=== PATIENT | male | born 1965 | race African-American/Black ===

== ENCOUNTER 2017-01-20 10:28 | Inpatient (IN) | payer OTHER ==
[2017-01-20 10:47] VITALS: BMI 25.0
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
[2017-01-20] MEDS ORDERED: ACETAMINOPHEN 325 MG TABLET (FP) PO PRN (14:02)
[2017-01-20] MEDS ORDERED: MAGNESIUM CITRATE 300 ML BOTTLE PO PRN (14:02)
[2017-01-20] MEDS ORDERED: MAGNESIUM HYDROX 2400MG/30ML ORAL SUSPENSION 30 ML CUP PO PRN (14:02)
[2017-01-20] MEDS ORDERED: MAG HYDROX/AL HYDROX/SIMETH 30 ML UNIT-DOSE CUP PO PRN (14:02)
[2017-01-20] MEDS ORDERED: MENTHOL/PHENOL 1 EACH UD MM PRN (14:02)
[2017-01-20] MEDS ORDERED: chlordiazePOXIDE HCL 25 MG CAPSULE PO PRN (14:02)
[2017-01-20] MEDS ORDERED: IBUPROFEN 400 MG TABLET (FP) PO PRN (14:02)
[2017-01-20] MEDS ORDERED: P-EPHED 60MG/TRIPROLIDI 2.5MG TABLET PO PRN (14:02)
[2017-01-20] MEDS ORDERED: NICOTINE POLACRILEX 4 MG GUM BUC PRN (14:02)
[2017-01-20] MEDS ORDERED: guaiFENesin/D-METHORPHAN HB 10 ML UNIT-DOSE CUPS PO PRN (14:02)
[2017-01-20] MEDS ORDERED: hydrOXYzine PAMOATE 50 MG CAPSULE (FP) PO PRN (14:02)
[2017-01-20] MEDS ORDERED: LOPERAMIDE HCL 2 MG CAPSULE PO PRN (14:02)
[2017-01-20] MEDS ORDERED: chlordiazePOXIDE HCL 25 MG CAPSULE PO ONE (14:15)
[2017-01-20] MEDS ORDERED: METHADONE HCL 10 MG TABLET (FOR DETOX USE ONLY) PO ONE ×2 (14:15→23:00)
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
[2017-01-20] MEDS: chlordiazePOXIDE HCL 25 MG CAPSULE PO SCH ×2 (17:24→22:09)
[2017-01-20] MEDS: THIAMINE HCL 100 MG TABLET (FP) PO SCH (22:08)
[2017-01-20 23:13] LABS: URINE APPEARANCE CLEAR; URINE BILIRUBIN NEGATIVE (NEGATIVE); URINE COLOR LTYELLOW; URINE GLUCOSE (UA) 1+ (NEGATIVE); URINE KETONE NEGATIVE (NEGATIVE); URINE LEUK ESTERASE NEGATIVE (NEGATIVE); URINE NITRITE NEGATIVE (NEGATIVE); URINE PROTEIN NEGATIVE (NEGATIVE); URINE UROBILINOGEN NEGATIVE E.U./dl (0.2-1.0)
[2017-01-20 23:23] LABS: URINE BLOOD 1+ (NEGATIVE)
[2017-01-20 23:26] LABS: URINE RBC 3 /hpf (0-3); URINE WBC 1 /hpf (3-5)
[2017-01-21] MEDS: chlordiazePOXIDE HCL 25 MG CAPSULE PO SCH ×4 (05:58→22:56)
[2017-01-21] MEDS ORDERED: METHADONE HCL 10 MG TABLET (FOR DETOX USE ONLY) PO SCH (10:00)
[2017-01-21 10:07] LABS: HIV 1 & 2 AB NEGATIVE; HIV 1 AGp24 NEGATIVE
[2017-01-21] MEDS: PRENATAL VITAMINS W/ FOLIC ACID TABLET (FP) PO SCH (10:24)
[2017-01-21] MEDS: NICOTINE 21 MG/24 HOURS TOPICAL PATCH TD SCH (10:25)
[2017-01-21 10:57] LABS: MCH 30.7 pg (25.7-33.7); MCHC 32.3 g/dl (32.0-35.9); MEAN CELL VOLUME 95.1 fl (80-96); MEAN PLT VOLUME 8.5 fl (7.5-11.1); PLATELET COUNT 215 K/MM3 (134-434); RDW 14.3 % (11.9-15.9); WHITE BLOOD COUNT 5.6 K/mm3 (4.0-10.0)
[2017-01-21 11:09] LABS: ANION GAP 8 (8-16); CALCIUM 8.9 mg/dL (8.5-10.1); CO2 26 mmol/L (21-32); GLUCOSE,RANDOM 147 mg/dL (74-106)
[2017-01-21 11:12] LABS: ALK PHOS 63 U/L (45-117); BILIRUBIN,TOTAL 0.6 mg/dL (0.2-1.0); COCKROFT - GAULT 80.38; CREATININE 1.2 mg/dL (0.7-1.3); SGOT/AST 16 U/L (15-37); SGPT/ALT 12 U/L (12-78); TOT PROT 6.9 g/dl (6.4-8.2)
--- NOTE | 2017-01-21 11:20 | PN ---
S CIWA - CIWA Score Nausea/Vomitin Muscle Tremors: 3 Anxiety: 3 Agitation: 2 Paroxysmal Sweats: 1-Minimal Palms Moist Orientation: 0-Oriented Tacttile Disturbances: 1-Very Mild Itch/Numbness Auditory Disturbances: 1-Very Mild Visual Disturbances: 1-Very Mild Sensitivity Headache: 2-Mild CIWA-Ar Total Score: 17 [facility] Progress Note (SOAP) Subjective: ALERT,IRRITABLE,ANXIOUS,INTERRUPTED SLEEP,TREMOR Objective: 01/21/17 11:18 Vital Signs Temperature 97.9 F 01/21/17 11:09 Pulse Rate 76 01/21/17 11:09 Respiratory Rate 20 01/21/17 11:09 Blood Pressure 150/95 01/21/17 11:09 O2 Sat by Pulse Oximetry (%) EKG NSR, Laboratory Last Values WBC 5.6 K/mm3 (4.0-10.0) 01/21/17 06:05 RBC 4.49 M/mm3 (4.00-5.60) 01/21/17 06:05 Hgb 13.8 GM/dL (11.7-16.9) 01/21/17 06:05 Hct 42.8 % (35.4-49) 01/21/17 06:05 MCV 95.1 fl (80-96) 01/21/17 06:05 MCHC 32.3 g/dl (32.0-35.9) 01/21/17 06:05 RDW 14.3 % (11.9-15.9) 01/21/17 06:05 Plt Count 215 K/MM3 (134-434) 01/21/17 06:05 MPV 8.5 fl (7.5-11.1) 01/21/17 06:05 Sodium 141 mmol/L (136-145) 01/21/17 06:05 Potassium 4.5 mmol/L (3.5-5.1) 01/21/17 06:05 Chloride 107 mmol/L (98-107) 01/21/17 06:05 Carbon Dioxide 26 mmol/L (21-32) 01/21/17 06:05 Anion Gap 8 (8-16) 01/21/17 06:05 BUN 15 mg/dL (7-18) 01/21/17 06:05 Creatinine 1.2 mg/dL (0.7-1.3) 01/21/17 06:05 Creat Clearance w eGFR > 60 (>60) 01/21/17 06:05 Random Glucose 147 mg/dL (74-106) H 01/21/17 06:05 Calcium 8.9 mg/dL (8.5-10.1) 01/21/17 06:05 Total Bilirubin 0.6 mg/dL (0.2-1.0) 01/21/17 06:05 AST 16 U/L (15-37) 01/21/17 06:05 ALT 12 U/L (12-78) 01/21/17 06:05 Alkaline Phosphatase 63 U/L (45-117) 01/21/17 06:05 Total Protein 6.9 g/dl (6.4-8.2) 01/21/17 06:05 Albumin 4.0 g/dl (3.4-5.0) 01/21/17 06:05 Urine Color Ltyellow 01/20/17 14:00 Urine Appearance Clear 01/20/17 14:00 Urine pH 6.0 (5.0-8.0) 01/20/17 14:00 Ur Specific [place] 1.017 (1.001-1.035) 01/20/17 14:00 Urine Protein Negative (NEGATIVE) 01/20/17 14:00 Urine Glucose (UA) 1+ (NEGATIVE) H 01/20/17 14:00 Urine Ketones Negative (NEGATIVE) 01/20/17 14:00 Urine Blood 1+ (NEGATIVE) H 01/20/17 14:00 Urine Nitrite Negative (NEGATIVE) 01/20/17 14:00 Urine Bilirubin Negative (NEGATIVE) 01/20/17 14:00 Urine Urobilinogen Negative E.U./dl (0.2-1.0) 01/20/17 14:00 Ur Leukocyte Esterase Negative (NEGATIVE) 01/20/17 14:00 Urine RBC 3 /hpf (0-3) 01/20/17 14:00 Urine WBC 1 /hpf (3-5) 01/20/17 14:00 Ur Epithelial Cells Rare /hpf (FEW) 01/20/17 14:00 HIV 1&2 Antibody Screen Negative 01/20/17 13:30 HIV P24 Antigen Negative 01/20/17 13:30 LABS PENDING Assessment: 01/21/17 11:19 WITHDRAWAL SYMPTOM Plan: CONTINUE DETOX,INITIAL GLUCOSE 147,BGM MONITORING
[2017-01-21] MEDS: FLUOCINONIDE 0.05% CREAM (60 GM TUBE) TP SCH ×2 (12:40→22:56)
[2017-01-21] MEDS: diphenhydrAMINE HCL 50 MG CAPSULE PO PRN (22:56)
[2017-01-21] MEDS: THIAMINE HCL 100 MG TABLET (FP) PO SCH (22:56)
[2017-01-22] MEDS: chlordiazePOXIDE HCL 25 MG CAPSULE PO SCH ×2 (05:39→10:50)
--- NOTE | 2017-01-22 08:01 | PN ---
[facility] CIWA - CIWA Score Nausea/Vomitin Muscle Tremors: 3 Anxiety: 3 Agitation: 3 Paroxysmal Sweats: 1-Minimal Palms Moist Orientation: 0-Oriented Tacttile Disturbances: 1-Very Mild Itch/Numbness Auditory Disturbances: 1-Very Mild Visual Disturbances: 1-Very Mild Sensitivity Headache: 1-Very Mild CIWA-Ar Total Score: 17 [facility] COWS - Scale Resting Pulse: 0= [place] 80 or Below Sweatin= Chills/Flushing Restless Observation: 3= Extraneous Movement Pupil Size: 1= Pupils >than Normal Bone or Joint Aches: 2= Severe Diffuse Aches Runny Nose/ Eye Tearin= Runny Nose/Eyes GI Upset > 30mins: 3= Vomiting/Diarrhea Tremor Observation of Outstretched Hands: 2= Slight Tremor Visible Yawning Observation: 1= 1-2x During Session Anxiety or Irritability: 2=Irritable/Anxious Goose Flesh Skin: 0=Smooth Skin COWS Score: 17 [facility] Progress Note (SOAP) Subjective: ALERT,IRRITABLE,ANXIOUS,INTERRUPTED SLEEP,PAIN IN THE BODY AND BACK Objective: 01/22/17 07:59 Vital Signs Temperature 97.7 F 01/22/17 07:23 Pulse Rate 71 01/22/17 07:23 Respiratory Rate 18 01/22/17 07:23 Blood Pressure 127/80 01/22/17 07:23 O2 Sat by Pulse Oximetry (%) Laboratory Last Values WBC 5.6 K/mm3 (4.0-10.0) 01/21/17 06:05 RBC 4.49 M/mm3 (4.00-5.60) 01/21/17 06:05 Hgb 13.8 GM/dL (11.7-16.9) 01/21/17 06:05 Hct 42.8 % (35.4-49) 01/21/17 06:05 MCV 95.1 fl (80-96) 01/21/17 06:05 MCHC 32.3 g/dl (32.0-35.9) 01/21/17 06:05 RDW 14.3 % (11.9-15.9) 01/21/17 06:05 Plt Count 215 K/MM3 (134-434) 01/21/17 06:05 MPV 8.5 fl (7.5-11.1) 01/21/17 06:05 Sodium 141 mmol/L (136-145) 01/21/17 06:05 Potassium 4.5 mmol/L (3.5-5.1) 01/21/17 06:05 Chloride 107 mmol/L (98-107) 01/21/17 06:05 Carbon Dioxide 26 mmol/L (21-32) 01/21/17 06:05 Anion Gap 8 (8-16) 01/21/17 06:05 BUN 15 mg/dL (7-18) 01/21/17 06:05 Creatinine 1.2 mg/dL (0.7-1.3) 01/21/17 06:05 Creat Clearance w eGFR > 60 (>60) 01/21/17 06:05 POC Glucometer 118 UNITS (()) 01/22/17 06:43 Random Glucose 147 mg/dL (74-106) H 01/21/17 06:05 Calcium 8.9 mg/dL (8.5-10.1) 01/21/17 06:05 Total Bilirubin 0.6 mg/dL (0.2-1.0) 01/21/17 06:05 AST 16 U/L (15-37) 01/21/17 06:05 ALT 12 U/L (12-78) 01/21/17 06:05 Alkaline Phosphatase 63 U/L (45-117) 01/21/17 06:05 Total Protein 6.9 g/dl (6.4-8.2) 01/21/17 06:05 Albumin 4.0 g/dl (3.4-5.0) 01/21/17 06:05 Urine Color Ltyellow 01/20/17 14:00 Urine Appearance Clear 01/20/17 14:00 Urine pH 6.0 (5.0-8.0) 01/20/17 14:00 Ur Specific [place] 1.017 (1.001-1.035) 01/20/17 14:00 Urine Protein Negative (NEGATIVE) 01/20/17 14:00 Urine Glucose (UA) 1+ (NEGATIVE) H 01/20/17 14:00 Urine Ketones Negative (NEGATIVE) 01/20/17 14:00 Urine Blood 1+ (NEGATIVE) H 01/20/17 14:00 Urine Nitrite Negative (NEGATIVE) 01/20/17 14:00 Urine Bilirubin Negative (NEGATIVE) 01/20/17 14:00 Urine Urobilinogen Negative E.U./dl (0.2-1.0) 01/20/17 14:00 Ur Leukocyte Esterase Negative (NEGATIVE) 01/20/17 14:00 Urine RBC 3 /hpf (0-3) 01/20/17 14:00 Urine WBC 1 /hpf (3-5) 01/20/17 14:00 Ur Epithelial Cells Rare /hpf (FEW) 01/20/17 14:00 RPR Titer Nonreactive (NONREACTIVE) 01/21/17 06:05 HIV 1&2 Antibody Screen Negative 01/20/17 13:30 HIV P24 Antigen Negative 01/20/17 13:30 Assessment: 01/22/17 08:00 WITHDRAWAL SYMPTOM Plan: PATIENT WANTED TO BE TESTED FOR HEPATITIS C,TEST ORDERED,CONTINUE DETOX
[2017-01-22] MEDS ORDERED: METHADONE HCL 5 MG TABLET (FOR DETOX USE ONLY) PO SCH (10:00)
[2017-01-22] MEDS: PRENATAL VITAMINS W/ FOLIC ACID TABLET (FP) PO SCH (10:50)
[2017-01-22] MEDS: FLUOCINONIDE 0.05% CREAM (60 GM TUBE) TP SCH ×2 (11:00→22:04)
[2017-01-22] MEDS: NICOTINE 21 MG/24 HOURS TOPICAL PATCH TD SCH (12:04)
[2017-01-22] MEDS: diphenhydrAMINE HCL 25 MG CAPSULE (FP) PO PRN (12:48)
--- NOTE | 2017-01-22 12:55 | PN ---
S Progress Note (SOAP) Subjective: ALERT,IRRITABLE,ANXIOUS,INTERRUPTED SLEEP,ITCHING Objective: 01/22/17 12:53 Vital Signs Temperature 97.7 F 01/22/17 10:13 Pulse Rate 78 01/22/17 10:13 Respiratory Rate 18 01/22/17 10:13 Blood Pressure 143/93 01/22/17 10:13 O2 Sat by Pulse Oximetry (%) Assessment: 01/22/17 12:54 WITHDRAWAL SYMPTOM Plan: CONTINUE DETOX,BENADRYL 25 MGS PO PRN Q6H FOR ITCHING
[2017-01-22] MEDS: chlordiazePOXIDE 5 MG CAPSULE PO SCH ×2 (17:53→23:57)
[2017-01-22] MEDS: THIAMINE HCL 100 MG TABLET (FP) PO SCH (22:04)
[2017-01-22] MEDS: diphenhydrAMINE HCL 50 MG CAPSULE PO PRN (22:04)
--- NOTE | 2017-01-23 00:13 | EKG ---
Test Reason : Blood Pressure : / mmHG Vent. Rate : 074 BPM Atrial Rate : 074 BPM P-R Int : 140 ms QRS Dur : 076 ms QT Int : 408 ms P-R-T Axes : 067 068 065 degrees QTc Int : 452 ms NORMAL SINUS RHYTHM MINIMAL VOLTAGE CRITERIA FOR LVH, MAY BE NORMAL VARIANT BORDERLINE ECG NO PREVIOUS ECGS AVAILABLE Confirmed by HUONG CORTEZ MD ([id number]) on 01/23/2017 12:13:26 AM Referred By: Confirmed By:HUONG CORTEZ MD
[2017-01-23] MEDS: chlordiazePOXIDE 5 MG CAPSULE PO SCH ×2 (06:00→10:56)
[2017-01-23] MEDS: PRENATAL VITAMINS W/ FOLIC ACID TABLET (FP) PO SCH (10:56)
[2017-01-23] MEDS: NICOTINE 21 MG/24 HOURS TOPICAL PATCH TD SCH (10:56)
[2017-01-23] MEDS: FLUOCINONIDE 0.05% CREAM (60 GM TUBE) TP SCH ×2 (10:56→23:01)
--- NOTE | 2017-01-23 11:46 | PN ---
[facility] Progress Note (SOAP) Subjective: intewrrupted sleep, sweats, diarrhea , shoulder pains Objective: 01/23/17 11:44 Vital Signs Temperature 97.5 F L 01/23/17 10:00 Pulse Rate 76 01/23/17 10:00 Respiratory Rate 16 01/23/17 10:00 Blood Pressure 133/96 01/23/17 10:00 O2 Sat by Pulse Oximetry (%) Laboratory Tests 01/20/17 01/20/17 01/21/17 13:30 14:00 06:05 WBC 5.6 RBC 4.49 Hgb 13.8 Hct 42.8 MCV 95.1 MCHC 32.3 RDW 14.3 Plt Count 215 MPV 8.5 Sodium Potassium Chloride Carbon Dioxide Anion Gap BUN Creatinine Creat Clearance w eGFR POC Glucometer Random Glucose Calcium Total Bilirubin AST ALT Alkaline Phosphatase Total Protein Albumin Urine Color Ltyellow Urine Appearance Clear Urine pH 6.0 Ur Specific [place] 1.017 Urine Protein Negative Urine Glucose (UA) 1+ H Urine Ketones Negative Urine Blood 1+ H Urine Nitrite Negative Urine Bilirubin Negative Urine Urobilinogen Negative Ur Leukocyte Esterase Negative Urine RBC 3 Urine WBC 1 Ur Epithelial Cells Rare RPR Titer HIV 1&2 Antibody Screen Negative HIV P24 Antigen Negative 01/21/17 01/21/17 01/21/17 06:05 06:05 16:32 WBC RBC Hgb Hct MCV MCHC RDW Plt Count MPV Sodium 141 Potassium 4.5 Chloride 107 Carbon Dioxide 26 Anion Gap 8 BUN 15 Creatinine 1.2 Creat Clearance w eGFR > 60 POC Glucometer 123 Random Glucose 147 H Calcium 8.9 Total Bilirubin 0.6 AST 16 ALT 12 Alkaline Phosphatase 63 Total Protein 6.9 Albumin 4.0 Urine Color Urine Appearance Urine pH Ur Specific [place] Urine Protein Urine Glucose (UA) Urine Ketones Urine Blood Urine Nitrite Urine Bilirubin Urine Urobilinogen Ur Leukocyte Esterase Urine RBC Urine WBC Ur Epithelial Cells RPR Titer Nonreactive HIV 1&2 Antibody Screen HIV P24 Antigen 01/22/17 01/22/17 01/23/17 06:43 16:50 05:59 WBC RBC Hgb Hct MCV MCHC RDW Plt Count MPV Sodium Potassium Chloride Carbon Dioxide Anion Gap BUN Creatinine Creat Clearance w eGFR POC Glucometer 118 109 110 Random Glucose Calcium Total Bilirubin AST ALT Alkaline Phosphatase Total Protein Albumin Urine Color Urine Appearance Urine pH Ur Specific [place] Urine Protein Urine Glucose (UA) Urine Ketones Urine Blood Urine Nitrite Urine Bilirubin Urine Urobilinogen Ur Leukocyte Esterase Urine RBC Urine WBC Ur Epithelial Cells RPR Titer HIV 1&2 Antibody Screen HIV P24 Antigen pt aox3 in nad ambulating 01/23/17 11:45 Assessment: 01/23/17 11:44 withdrawal sxls shoulder pain Plan: cont. detox increrase fluids analgesic balm imodium prn d/c in am
[2017-01-23] MEDS: diphenhydrAMINE HCL 25 MG CAPSULE (FP) PO PRN (15:01)
[2017-01-23] MEDS: chlordiazePOXIDE HCL 10 MG CAPSULE PO SCH ×2 (17:49→22:08)
[2017-01-23] MEDS: THIAMINE HCL 100 MG TABLET (FP) PO SCH (22:09)
[2017-01-23] MEDS: diphenhydrAMINE HCL 50 MG CAPSULE PO PRN (22:11)
[2017-01-24] MEDS: chlordiazePOXIDE HCL 10 MG CAPSULE PO SCH (06:11)
--- NOTE | 2017-01-24 09:08 | DS ---
[facility] Detox Discharge Summary Admission Date: 01/20/17 Discharge Date: 01/24/17 - History Present History: Alcohol Dependence, Cannabis Dependence, Opioid Dependence - Physical Exam Results Vital Signs: Vital Signs Temperature 96.4 F L 01/24/17 06:00 Pulse Rate 78 01/24/17 06:00 Respiratory Rate 18 01/24/17 06:00 Blood Pressure 115/64 01/24/17 06:00 O2 Sat by Pulse Oximetry (%) - Treatment Hospital Course: Detox Protocol Followed, Detoxed Safely, Responded well, Discharged Condition Good, Rehab Referral Accepted - Medication Discharge Medications: Ambulatory Orders NK [No Known Home Medication] 01/20/17 - Diagnosis (1) Alcohol dependence with uncomplicated withdrawal Current Visit: Yes Status: Chronic (2) Cannabis dependence, uncomplicated Current Visit: Yes Status: Chronic (3) Opioid dependence with withdrawal Current Visit: Yes Status: Chronic (4) PCP dependence Current Visit: Yes Status: Chronic (5) Weight loss Current Visit: Yes Status: Chronic (6) Nicotine dependence Current Visit: Yes Status: Chronic Qualifiers: Nicotine product type: cigarettes Substance use status: uncomplicated Qualified Code(s): F17.210 - Nicotine dependence, cigarettes, uncomplicated (7) PPD positive Current Visit: Yes Status: Chronic - AMA Did Patient Leave Against Medical Advice: No
[2017-01-24 09:43] VITALS: BP 124/68; PULSE 91; TEMP 97
[2017-01-24] MEDS ORDERED: METHADONE HCL 10 MG TABLET (FOR DETOX USE ONLY) PO SCH (10:00)
[2017-01-25] MEDS ORDERED: METHADONE HCL 5 MG TABLET (FOR DETOX USE ONLY) PO SCH (06:00)
== END 2017-01-24 09:50 | disposition home or self-care (01) | DRG 773 ==
LOC: YASAS 10:28 → Y6N 14:10
PROVIDERS: ADMIT Internal Medicine; ATTEND Internal Medicine Addiction Medicine
PROC: HZ2ZZZZ Detoxification Services for Substance Abuse Treatment (ICD-10-PCS; principal; 2017-01-24)
DX: F11.23 Opioid dependence with withdrawal (principal); F10.230 Alcohol dependence with withdrawal, uncomplicated; F12.20 Cannabis dependence, uncomplicated; F16.20 Hallucinogen dependence, uncomplicated; F17.210 Nicotine dependence, cigarettes, uncomplicated; R76.11 Nonspecific reaction to tuberculin skin test without active tuberculosis; Z86.19 Personal history of other infectious and parasitic diseases; R63.4 Abnormal weight loss; Z68.25 Body mass index [BMI] 25.0-25.9, adult
CPT/HCPCS: 36415; 71020-TC; 80053; 81003; 81015; 85027; 86593; 87389; 93005; 93010

== ENCOUNTER 2021-06-04 11:57 | Inpatient (IN) | payer OTHER ==
[2021-06-04 13:49] VITALS: BMI 22.6
[2021-06-04] MEDS ORDERED: diazePAM 5 MG TABLET ONE (14:46)
[2021-06-04] MEDS ORDERED: diazePAM 5 MG TABLET PO PRN (14:48)
[2021-06-04] MEDS ORDERED: METHOCARBAMOL 500 MG TABLET PO PRN (14:48)
[2021-06-04] MEDS ORDERED: ACETAMINOPHEN 325 MG TABLET (FP) PO PRN ×2 (14:48)
[2021-06-04] MEDS ORDERED: methaDONE HCL 10 MG TABLET (FOR DETOX USE ONLY) PO ONE (14:48)
[2021-06-04] MEDS ORDERED: IBUPROFEN 400 MG TABLET (FP) PO PRN (14:48)
[2021-06-04] MEDS ORDERED: clonazePAM 0.5 MG ODT TABLETS SL PRN (14:48)
[2021-06-04] MEDS ORDERED: MAG HYDROX/AL HYDROX/SIMETH 30 ML UNIT-DOSE CUP PO PRN (14:48)
[2021-06-04] MEDS ORDERED: ONDANSETRON *ODT* 4 MG TABLET SL PRN (14:48)
[2021-06-04] MEDS ORDERED: MAGNESIUM CITRATE 300 ML BOTTLE PO PRN (14:48)
[2021-06-04] MEDS ORDERED: MENTHOL/PHENOL 1 EACH UD MM PRN (14:48)
[2021-06-04] MEDS ORDERED: cloNIDine HCL 0.1 MG TABLET PO PRN (14:48)
[2021-06-04] MEDS ORDERED: MAGNESIUM HYDROX 2400MG/30ML ORAL SUSPENSION 30 ML CUP PO PRN (14:48)
[2021-06-04] MEDS ORDERED: BISMUTH SUBSALICYLATE 524 MG/30 ML PO PRN (14:48)
[2021-06-04] MEDS: diazePAM 5 MG TABLET PO SCH ×3 (15:43→22:17)
[2021-06-04] MEDS: PRENATAL VITAMINS W/ FOLIC ACID TABLET (FP) PO SCH (15:55)
[2021-06-04] MEDS: hydrOXYzine PAMOATE 25 MG CAPSULE (FP) PO SCH ×2 (17:34→22:17)
[2021-06-04] MEDS: MELATONIN 5 MG TABLETS PO SCH (22:17)
[2021-06-04] MEDS: THIAMINE HCL 100 MG TABLET (FP) PO SCH (22:17)
[2021-06-05] MEDS: hydrOXYzine PAMOATE 25 MG CAPSULE (FP) PO SCH ×5 (05:25→23:10)
[2021-06-05] MEDS: diazePAM 5 MG TABLET PO SCH ×5 (05:25→23:10)
[2021-06-05] MEDS ORDERED: methaDONE HCL 10 MG TABLET (FOR DETOX USE ONLY) ONE (08:53)
[2021-06-05] MEDS: PRENATAL VITAMINS W/ FOLIC ACID TABLET (FP) PO SCH (10:20)
[2021-06-05 13:04] LABS: HEMATOCRIT 37.2 % (35.4-49); HEMOGLOBIN 12.7 GM/dL (11.7-16.9); MCH 30.6 pg (25.7-33.7); MEAN CELL VOLUME 89.9 fl (80-96); MEAN PLT VOLUME 7.7 fl (7.5-11.1); PLATELET COUNT 250 10^3/uL (134-434); RBC 4.14 M/mm3 (4.00-5.60); WHITE BLOOD COUNT 6.1 K/mm3 (4.0-10.0)
[2021-06-05 13:23] LABS: ALBUMIN 3.3 g/dl (3.4-5.0); BLOOD UREA NITROGEN 17.4 mg/dL (7-18); CALCIUM 8.7 mg/dL (8.5-10.1)
[2021-06-05] MEDS: NICOTINE POLACRILEX 4 MG GUM BUC PRN (13:24)
[2021-06-05 13:27] LABS: CREATININE 1.1 mg/dL (0.55-1.3)
[2021-06-05 13:28] LABS: BILIRUBIN,TOTAL 0.7 mg/dL (0.2-1); TOT PROT 6.2 g/dl (6.4-8.2)
[2021-06-05] MEDS: THIAMINE HCL 100 MG TABLET (FP) PO SCH (22:12)
[2021-06-05] MEDS: MELATONIN 5 MG TABLETS PO SCH (22:13)
[2021-06-06] MEDS: diazePAM 5 MG TABLET PO SCH ×3 (06:12→22:47)
[2021-06-06] MEDS: hydrOXYzine PAMOATE 25 MG CAPSULE (FP) PO SCH ×5 (06:13→22:48)
[2021-06-06] MEDS ORDERED: methaDONE HCL 10 MG TABLET (FOR DETOX USE ONLY) PO ONE (10:00)
[2021-06-06] MEDS: PRENATAL VITAMINS W/ FOLIC ACID TABLET (FP) PO SCH (10:15)
[2021-06-06] MEDS: NICOTINE POLACRILEX 4 MG GUM BUC PRN (14:28)
[2021-06-06] MEDS: THIAMINE HCL 100 MG TABLET (FP) PO SCH (22:48)
[2021-06-06] MEDS: MELATONIN 5 MG TABLETS PO SCH (22:57)
[2021-06-07] MEDS: diazePAM 5 MG TABLET PO SCH ×2 (05:35→17:55)
[2021-06-07] MEDS: hydrOXYzine PAMOATE 25 MG CAPSULE (FP) PO SCH ×5 (05:36→22:13)
[2021-06-07] MEDS ORDERED: methaDONE HCL 10 MG TABLET (FOR DETOX USE ONLY) ONE (09:22)
[2021-06-07] MEDS: PRENATAL VITAMINS W/ FOLIC ACID TABLET (FP) PO SCH (10:06)
[2021-06-07] MEDS: NICOTINE POLACRILEX 4 MG GUM BUC PRN (22:13)
[2021-06-07] MEDS: THIAMINE HCL 100 MG TABLET (FP) PO SCH (22:13)
[2021-06-07] MEDS: MELATONIN 5 MG TABLETS PO SCH (22:29)
[2021-06-08] MEDS: hydrOXYzine PAMOATE 25 MG CAPSULE (FP) PO SCH ×5 (05:58→22:11)
[2021-06-08] MEDS ORDERED: diazePAM 5 MG TABLET PO ONE (06:00)
[2021-06-08] MEDS ORDERED: methaDONE HCL 10 MG TABLET (FOR DETOX USE ONLY) PO ONE (10:00)
[2021-06-08] MEDS: PRENATAL VITAMINS W/ FOLIC ACID TABLET (FP) PO SCH (10:27)
[2021-06-08] MEDS: THIAMINE HCL 100 MG TABLET (FP) PO SCH (22:12)
[2021-06-08] MEDS: MELATONIN 5 MG TABLETS PO SCH (22:12)
[2021-06-09] MEDS: hydrOXYzine PAMOATE 25 MG CAPSULE (FP) PO SCH ×2 (05:50→10:26)
[2021-06-09 09:24] VITALS: BP 133/73; PULSE 76; TEMP 97.1
[2021-06-09] MEDS: PRENATAL VITAMINS W/ FOLIC ACID TABLET (FP) PO SCH (10:26)
== END 2021-06-09 09:25 | disposition home or self-care (01) | DRG 773 ==
LOC: YASAS 11:57 → Y6N 14:17
PROVIDERS: ADMIT Allergy & Immunology; ATTEND Allergy & Immunology
PROC: HZ2ZZZZ Detoxification Services for Substance Abuse Treatment (ICD-10-PCS; principal; 2021-06-04)
DX: F11.23 Opioid dependence with withdrawal (principal); F10.230 Alcohol dependence with withdrawal, uncomplicated; F14.20 Cocaine dependence, uncomplicated; F16.20 Hallucinogen dependence, uncomplicated; F17.210 Nicotine dependence, cigarettes, uncomplicated; I10 Essential (primary) hypertension; R76.11 Nonspecific reaction to tuberculin skin test without active tuberculosis; R63.4 Abnormal weight loss; Z68.22 Body mass index [BMI] 22.0-22.9, adult; Z86.19 Personal history of other infectious and parasitic diseases; Z88.0 Allergy status to penicillin; Z91.011 Allergy to milk products
CPT/HCPCS: 36415; 71046-TC-FY; 80053; 85027; 86593; 86780; C9803; U0003; U0005

== ENCOUNTER 2024-08-01 23:46 | Observation (INO) | payer OTHER ==
[2024-08-02 00:45] LABS: BASO % 0.7 % (0-2.0); EOS % 4.6 % (0-4.5); HEMATOCRIT 38.2 % (35.4-49); HEMOGLOBIN 12.4 GM/dL (11.7-16.9); LYMPH % 30.2 % (8-40); MCH 29.9 pg (25.7-33.7); MCHC 32.4 g/dl (32.0-35.9); MEAN CELL VOLUME 92.2 fl (80-96); MEAN PLT VOLUME 7.6 fl (7.5-11.1); MONO % 12.7 % (3.8-10.2); NEUT % 51.8 % (42.8-82.8); PLATELET COUNT 320 10^3/uL (134-434); RBC 4.14 M/mm3 (4.00-5.60); RDW 13.8 % (11.9-15.9); WHITE BLOOD COUNT 6.2 K/mm3 (4.0-10.0)
[2024-08-02 01:08] LABS: BLOOD UREA NITROGEN 17.5 mg/dL (7-18); CALCIUM 9.2 mg/dL (8.5-10.1)
[2024-08-02 01:12] LABS: CREATININE 1.7 mg/dL (0.55-1.3)
[2024-08-02 01:13] LABS: BILIRUBIN,TOTAL 0.3 mg/dL (0.2-1); TOT PROT 7.1 g/dl (6.4-8.2)
[2024-08-02] MEDS: SODIUM CHLORIDE 500 ML IV STA (01:52)
[2024-08-02] MEDS ORDERED: NALOXONE HCL 0.4 MG/ML VIAL ONE ×2 (03:45→06:14)
[2024-08-02 03:46] LABS: EPI CELLS 3 /uL (0-25.1); HYALINE CASTS 0 /uL (0-3.1); PH,URINE 6.5 (5.0-8.0); URINE APPEARANCE CLEAR; URINE BACTERIA 4 /uL (0-1359); URINE BILIRUBIN NEGATIVE (NEGATIVE); URINE COLOR YELLOW; URINE GLUCOSE (UA) 1+ (NEGATIVE); URINE KETONE NEGATIVE (NEGATIVE); URINE LEUK ESTERASE NEGATIVE (NEGATIVE); URINE NITRITE NEGATIVE (NEGATIVE); URINE PROTEIN 1+ (NEGATIVE); URINE RBC 6 /uL (0-23.9); URINE WBC 6 /uL (0-25.8)
[2024-08-02 03:49] LABS: METHADONE, UR NEGATIVE (NEGATIVE); URINE AMPHETAMINES NEGATIVE (NEGATIVE)
[2024-08-02 03:50] LABS: URINE BENZODIAZEPINES NEGATIVE (NEGATIVE)
[2024-08-02] MEDS: NALOXONE HCL 0.4 MG/ML VIAL IVPUSH ONE ×4 (04:46→08:49)
[2024-08-02 05:31] LABS: COCAINE, UR POSITIVE (NEGATIVE); OPIATES, URI POSITIVE (NEGATIVE); PHENCYCLIDINE,URINE POSITIVE (NEGATIVE); URINE BARBITURATES NEGATIVE (NEGATIVE)
[2024-08-02 05:32] LABS: VENOUS BASE EXCESS 0.8 mmol/L (-2-2); VENOUS PCO2 60.9 mmHg (38-52); VENOUS PH 7.288 (7.310-7.410)
[2024-08-02] MEDS: NALOXONE HCL 2 MG in DEXTROSE 5%-WATER - 495 ML IV SCH (08:41)
[2024-08-02 10:02] LABS: VENOUS O2 SATURATION 56.6 % (70-80); VENOUS PCO2 55.4 mmHg (38-52); VENOUS PH 7.336 (7.310-7.410)
[2024-08-02] MEDS ORDERED: LORazepam 2 MG/ML SDV VIAL IVPUSH PRN (10:26)
[2024-08-02] MEDS: LACTATED RINGERS SOLUTION 1,000 ML/1,000 ML INFUS.BAG IV SCH (11:01)
[2024-08-02 14:17] LABS: CHOLESTEROL 179 mg/dL (50-200)
[2024-08-02 14:19] LABS: LDL CHOLESTEROL (ONLY SJRH) 102 mg/dL (5-100)
[2024-08-02 14:20] LABS: HDL CHOLESTEROL 51 mg/dL (40-60)
[2024-08-02 18:53] VITALS: BMI 22.6
[2024-08-03] MEDS: amLODIPine BESYLATE 5 MG TABLET (FP) PO SCH (09:38)
[2024-08-03] MEDS: ENOXAPARIN NA (PORCINE) 40 MG/0.4 ML DISP.SYRIN SQ SCH (09:38)
[2024-08-03] MEDS ORDERED: levoFLOXacin 750 MG TABLET PO SCH (10:00)
[2024-08-03] MEDS: SODIUM CHLORIDE 1,000 ML IV SCH (12:50)
[2024-08-03 16:18] LABS: CALCIUM 9.2 mg/dL (8.5-10.1)
[2024-08-03 16:19] LABS: BLOOD UREA NITROGEN 14.5 mg/dL (7-18)
[2024-08-03 16:22] LABS: CREATININE 1.4 mg/dL (0.55-1.3)
[2024-08-04 07:54] LABS: CALCIUM 9.1 mg/dL (8.5-10.1)
[2024-08-04 07:55] LABS: ALBUMIN 3.2 g/dl (3.4-5.0); BLOOD UREA NITROGEN 11.5 mg/dL (7-18)
[2024-08-04 07:58] LABS: CREATININE 1.2 mg/dL (0.55-1.3)
[2024-08-04 07:59] LABS: BILIRUBIN,TOTAL 0.3 mg/dL (0.2-1); TOT PROT 6.1 g/dl (6.4-8.2)
[2024-08-04] MEDS: LORazepam 2 MG/ML SDV VIAL IVPUSH PRN (09:19)
[2024-08-04] MEDS ORDERED: levoFLOXacin 750 MG TABLET PO SCH (10:00)
[2024-08-05 03:48] VITALS: BP 146/84; PULSE 91; RESP 18; TEMP 98.6
== END 2024-08-05 11:32 | disposition home or self-care (01) ==
LOC: JER 23:46 → JERBED 08-02 08:41 → UNDOADMOB 08-02 08:41 → INTOOBSV 08-02 08:41 → JERBED 08-02 10:19 → J4W 08-02 18:08
PROVIDERS: ADMIT Internal Medicine; ATTEND Internal Medicine
PROC: 3E033GC Introduction of Other Therapeutic Substance into Peripheral Vein, Percutaneous Approach (ICD-10-PCS; principal; 2024-08-02)
PROC: 3E03329 Introduction of Other Anti-infective into Peripheral Vein, Percutaneous Approach (ICD-10-PCS; 2024-08-02)
PROC: 3E033GC Introduction of Other Therapeutic Substance into Peripheral Vein, Percutaneous Approach (ICD-10-PCS; 2024-08-02)
PROC: 3E033NZ Introduction of Analgesics, Hypnotics, Sedatives into Peripheral Vein, Percutaneous Approach (ICD-10-PCS; 2024-08-02)
DX: T40.1X1A Poisoning by heroin, accidental (unintentional), initial encounter (principal); Y92.239 Unspecified place in hospital as the place of occurrence of the external cause; J96.02 Acute respiratory failure with hypercapnia; E07.81 Sick-euthyroid syndrome; E05.80 Other thyrotoxicosis without thyrotoxic crisis or storm; G92.9 Unspecified toxic encephalopathy; F11.10 Opioid abuse, uncomplicated; F12.10 Cannabis abuse, uncomplicated; F10.10 Alcohol abuse, uncomplicated; I10 Essential (primary) hypertension; F19.10 Other psychoactive substance abuse, uncomplicated; Z88.0 Allergy status to penicillin; Z91.011 Allergy to milk products; N17.9 Acute kidney failure, unspecified; R73.03 Prediabetes
CPT/HCPCS: 36415; 70450-TC; 71045-TC-FY; 80048; 80053; 80061; 80307; 81003; 82803; 83036; 84439; 84443; 84484; 85025; 87086; 87899; 93005; 93010; 96361; 96365; 96375; 96376; 99285-25; G0378